=== PATIENT | female | born 1975 | race Hispanic/Latino ===

== ENCOUNTER 2019-03-05 13:23 | Emergency (ER) | payer SELFPAY ==
[2019-03-05] MEDS ORDERED: predniSONE 20 MG TAB ONE (14:31)
[2019-03-05] MEDS ORDERED: Ibuprofen 800 MG TAB ONE (14:32)
--- NOTE | 2019-03-05 14:41 | RAD ---
EXAM: 3 views of the lumbosacral spine HISTORY: Low back pain COMPARISON: None FINDINGS: 3 views of the lumbosacral spine shows normal height and alignment of the vertebral bodies and intervertebral discs without fracture or subluxation. No significant degenerative changes are seen. The sacroiliac joints are unremarkable. IMPRESSION: No significant lumbar spine abnormality.
--- NOTE | 2019-03-05 14:41 | RAD ---
EXAM: AP view pelvis 2 views left hip PROVIDED CLINICAL HISTORY: Back pain for 4 days. Left hip pain. COMPARISON: None FINDINGS: No fracture or dislocation is seen involving the hips bilaterally. No other osseous abnormality. IMPRESSION: No acute osseous abnormality.
== END 2019-03-05 15:30 | disposition home or self-care (01) ==
LOC: ERS 13:23
DX: M54.42 Lumbago with sciatica, left side (principal)
CPT/HCPCS: 72100; 72170; J7512

== ENCOUNTER 2019-11-22 11:26 | Emergency (ER) | payer MEDICAID, SELFPAY ==
[2019-11-22 12:00] LABS: #Basophils 0.1 thou/uL (0.0-0.2); #Eosinphils 0.2 thou/uL (0.0-0.7); #Lymphocytes 2.3 thou/uL (1.20-3.40); #Monocytes 0.5 thou/uL (0.11-0.59); #Neutrophils 5.1 thou/uL (1.40-6.50); %Basophils 0.7 % (0.0-1.0); %Eosinophils 2.7 % (0.0-10.0); %Monocytes 5.8 % (0.0-10.0); %Neutrophils 62.8 % (42.0-75.0); Hemoglobin 13.8 g/dL (12.0-16.0); Mean Corpuscular HGB CONC 33.8 g/dL (32.0-36.0); Mean Corpuscular Hemoglobin 28.4 pg (27.0-31.0); Mean Corpuscular Volume 84.1 fL (78.0-98.0); Mean Platelet Volume 8.9 fL (7.4-10.4); Platelet Count 312 thou/uL (130-400); RBC Distribution Width 12.7 % (11.5-14.5); Red Blood Cell (RBC) Count 4.86 mill/uL (4.20-5.40)
[2019-11-22 12:09] LABS: ALT (SGPT) 12 U/L (8-55); AST (SGOT) 12 U/L (5-34); Albumin 3.8 g/dL (3.5-5.0); Alkaline Phosphatase 94 U/L (40-110); Anion Gap 13 mmol/L (10-20); BUN (Urea Nitrogen) 7 mg/dL (7.0-18.7); Bilirubin, Total 0.3 mg/dL (0.2-1.2); Calc. Creatinine Clearance 0 mL/min (70-130); Calcium 8.7 mg/dL (7.8-10.44); Carbon Dioxide 23 mmol/L (22-29); Chloride 103 mmol/L (98-107); Estimated GFR-MDRD 83; Globulin 3.1 g/dL (2.4-3.5); Glucose 275 mg/dL (70-105); Potassium 4.1 mmol/L (3.5-5.1); Protein, Total 6.9 g/dL (6.0-8.3); Sodium 135 mmol/L (136-145)
[2019-11-22 12:52] LABS: BHCG - Serum POSITIVE (NEGATIVE); Pregs Control Background? CLEAR/WHITE (CLR/WHITE); Pregs Control Bar Appear? YES (CONTROL BAR)
[2019-11-22 12:52] LABS: Bilirubin Negative (Negative); Blood, Urine Negative (Negative); Clarity Turbid (Clear); Glucose, Urine (Dipstick) Greater than 1000 mg/dL (Negative); Ketone, Urine 20 mg/dL (Negative); Leukocyte 500 Leu/uL (Negative); Nitrite Negative (Negative); Protein, Urine (Dipstick) Negative (Neg-Trace); Specific Gravity, Urine 1.042 (1.002-1.036); Urobilinogen Normal mg/dL (Less than 2); pH, Urine 5.5 (5.0-9.0)
[2019-11-22 13:02] LABS: Bacteria/HPF 1+ HPF (None Seen)
[2019-11-22] MEDS ORDERED: Nitrofurantoin Macrocrystal 50 MG CAP PO SCH (14:00)
--- NOTE | 2019-11-22 14:11 | ULT ---
EXAM: Pelvic ultrasound HISTORY: Left lower quadrant discomfort for 3 to 4 days COMPARISON: None TECHNIQUE: Multiple grayscale and color Doppler images were obtained in a transabdominal and transvag inal pelvic ultrasound. Spectral analysis of the Doppler waveforms of the ovaries were performed. FINDINGS: UTERUS: There is an intrauterine gestational sac. This contains a possible yolk sac and pole. [place]-rump length: 3.6 mm which estimates gestational age at 6 weeks 0 days. A heart rate is detected at 116 bpm. No evidence of subchorionic hemorrhage. No free fluid is seen in the pelvis. RIGHT OVARY: Normal flow without focal mass. LEFT OVARY: Normal flow without focal mass. IMPRESSION: Single live intrauterine with estimated age of 6 weeks 0 days.
== END 2019-11-22 14:58 | disposition home or self-care (01) ==
LOC: ERS 11:26
DX: O23.41 Unspecified infection of urinary tract in pregnancy, first trimester (principal); Z3A.01 Less than 8 weeks gestation of pregnancy
CPT/HCPCS: 36415; 76856; 80053; 81003; 81015; 84702; 84703; 85025; 87077; 87086; 94760

== ENCOUNTER 2019-12-18 05:32 | Emergency (ER) | payer MEDICAID, OTHER ==
[2019-12-18 06:05] LABS: #Basophils 0.1 thou/uL (0.0-0.2); #Eosinphils 0.2 thou/uL (0.0-0.7); #Lymphocytes 2.3 thou/uL (1.20-3.40); #Monocytes 0.6 thou/uL (0.11-0.59); #Neutrophils 5.2 thou/uL (1.40-6.50); %Basophils 0.7 % (0.0-1.0); %Eosinophils 2.5 % (0.0-10.0); %Lymphocytes 27.5 % (21.0-51.0); %Monocytes 7.5 % (0.0-10.0); %Neutrophils 61.8 % (42.0-75.0); Mean Corpuscular HGB CONC 32.4 g/dL (32.0-36.0); Mean Corpuscular Hemoglobin 27.8 pg (27.0-31.0); Mean Corpuscular Volume 85.7 fL (78.0-98.0); Mean Platelet Volume 8.4 fL (7.4-10.4); Platelet Count 294 thou/uL (130-400); Red Blood Cell (RBC) Count 4.68 mill/uL (4.20-5.40); White Blood Cell (WBC) Count 8.5 thou/uL (4.8-10.8)
[2019-12-18 06:49] LABS: Bilirubin Negative (Negative); Blood, Urine 3+ (Negative); Clarity Turbid (Clear); Glucose, Urine (Dipstick) Greater than 1000 mg/dL (Negative); Ketone, Urine 20 mg/dL (Negative); Leukocyte 250 Leu/uL (Negative); Nitrite Negative (Negative); Protein, Urine (Dipstick) 30 mg/dL (Neg-Trace); Squamous Epithelial 21-50 HPF (0-3); Urobilinogen Normal mg/dL (Less than 2); pH, Urine 6.5 (5.0-9.0)
[2019-12-18 06:57] LABS: Bacteria/HPF 2+ HPF (None Seen)
== END 2019-12-18 07:04 | disposition short-term general hospital (02) ==
LOC: ERS 05:32
DX: O09.521 Supervision of elderly multigravida, first trimester (principal); O20.9 Hemorrhage in early pregnancy, unspecified; Z3A.10 10 weeks gestation of pregnancy
CPT/HCPCS: 36415; 81003; 81015; 84702; 85025; 86900; 86901

== ENCOUNTER 2020-04-20 21:30 | Emergency (ER) | payer OTHER ==
[2020-04-20] MEDS ORDERED: Dexamethasone 4 mg/ml Vial ONE (22:49)
[2020-04-20] MEDS ORDERED: Acetaminophen 500 MG TAB ONE (22:49)
[2020-04-20] MEDS ORDERED: diphenhydrAMINE 25 MG CAP ONE (22:49)
[2020-04-20 23:10] LABS: #Eosinphils 0.2 thou/uL (0.0-0.7); #Lymphocytes 1.9 thou/uL (1.20-3.40); #Monocytes 0.5 thou/uL (0.11-0.59); #Neutrophils 3.8 thou/uL (1.40-6.50); %Basophils 0.3 % (0.0-1.0); %Eosinophils 3.6 % (0.0-10.0); %Lymphocytes 29.5 % (21.0-51.0); %Monocytes 7.7 % (0.0-10.0); %Neutrophils 58.9 % (42.0-75.0); Hemoglobin 11.5 g/dL (12.0-16.0); Mean Corpuscular HGB CONC 34.3 g/dL (32.0-36.0); Mean Corpuscular Hemoglobin 28.8 pg (27.0-31.0); Mean Platelet Volume 8.6 fL (7.4-10.4); Platelet Count 285 thou/uL (130-400); RBC Distribution Width 12.5 % (11.5-14.5); White Blood Cell (WBC) Count 6.4 thou/uL (4.8-10.8)
[2020-04-20 23:27] LABS: ALT (SGPT) 9 U/L (8-55); AST (SGOT) 14 U/L (5-34); Albumin 3.1 g/dL (3.5-5.0); Alkaline Phosphatase 108 U/L (40-110); Anion Gap 16 mmol/L (10-20); BUN (Urea Nitrogen) 8 mg/dL (7.0-18.7); Bilirubin, Total Less than 0.2 mg/dL (0.2-1.2); Calc. Creatinine Clearance 0 mL/min (70-130); Calcium 9.2 mg/dL (7.8-10.44); Carbon Dioxide 20 mmol/L (22-29); Chloride 101 mmol/L (98-107); Estimated GFR-MDRD Greater than 90; Globulin 3.6 g/dL (2.4-3.5); Glucose 282 mg/dL (70-105); Potassium 3.4 mmol/L (3.5-5.1); Protein, Total 6.7 g/dL (6.0-8.3); Sodium 134 mmol/L (136-145)
== END 2020-04-20 23:55 | disposition home or self-care (01) ==
LOC: ERS 21:30
DX: O99.713 Diseases of the skin and subcutaneous tissue complicating pregnancy, third trimester (principal); L50.9 Urticaria, unspecified; O09.523 Supervision of elderly multigravida, third trimester; O24.415 Gestational diabetes mellitus in pregnancy, controlled by oral hypoglycemic drugs; Z3A.28 28 weeks gestation of pregnancy
CPT/HCPCS: 36415; 80053; 85025; 99284; J1100; Q0163

== ENCOUNTER 2020-04-24 17:10 | Emergency (ER) | payer OTHER ==
[2020-04-24 23:03] LABS: SARS-CoV-2 MS2 Positive; SARS-CoV-2 N Gene Negative; SARS-CoV-2 S Gene Negative; SARS-CoV-2 by NAA Not Detected (NotDetected); SARS-CoV-2 orf1ab Negative
== END 2020-04-24 17:35 | disposition home or self-care (01) ==
LOC: ERS 17:10
DX: O99.891 Other specified diseases and conditions complicating pregnancy (principal); R09.81 Nasal congestion; R50.9 Fever, unspecified; R53.83 Other fatigue; R06.00 Dyspnea, unspecified; Z20.828 Contact with and (suspected) exposure to other viral communicable diseases; O09.523 Supervision of elderly multigravida, third trimester; Z3A.28 28 weeks gestation of pregnancy
CPT/HCPCS: 87635; 99283; U0003

== ENCOUNTER 2020-10-02 18:49 | Emergency (ER) | payer OTHER | END 2020-10-02 19:49 | disposition home or self-care (01) | LOC: ERS 18:49 | DX: R20.2 Paresthesia of skin (principal); G62.9 Polyneuropathy, unspecified | CPT/HCPCS: 99283 ==

== ENCOUNTER 2020-10-18 12:18 | Emergency (ER) | payer OTHER ==
[2020-10-18] MEDS ORDERED: Ketorolac Tromethamine 30 MG/ML VIAL ONE (13:00)
== END 2020-10-18 15:20 | disposition home or self-care (01) ==
LOC: ERS 12:18
DX: M79.10 Myalgia, unspecified site (principal); Z79.899 Other long term (current) drug therapy
CPT/HCPCS: 36415; 71045; 85652; 86140; 96372; J1885

== ENCOUNTER 2021-03-28 15:31 | Outpatient (CLI) | payer OTHER | END 2021-03-28 15:32 | disposition home or self-care (01) | LOC: BICMRI 15:31 | PROVIDERS: ATTEND Student in an Organized Health Care Education/Training Program | DX: S83.8X2D Sprain of other specified parts of left knee, subsequent encounter (principal) ==

== ENCOUNTER 2021-12-22 15:13 | Outpatient (CLI) | payer OTHER | END 2021-12-22 15:14 | disposition home or self-care (01) | LOC: BICMAMMO 15:13 | PROVIDERS: ATTEND Nurse Practitioner Family | DX: Z12.31 Encounter for screening mammogram for malignant neoplasm of breast (principal) | CPT/HCPCS: 77063; 77067 ==

== ENCOUNTER 2022-07-19 16:35 | Outpatient (CLI) | payer OTHER | END 2022-07-19 16:36 | disposition home or self-care (01) | LOC: RAD 16:35 | PROVIDERS: ATTEND Nurse Practitioner Family | DX: M54.31 Sciatica, right side (principal); M47.816 Spondylosis without myelopathy or radiculopathy, lumbar region | CPT/HCPCS: 72100; 72220 ==

== ENCOUNTER 2022-10-09 17:49 | Emergency (ER) | payer OTHER ==
[2022-10-09] MEDS ORDERED: Ketorolac Tromethamine 30 MG/ML VIAL ONE (20:52)
== END 2022-10-09 22:05 | disposition home or self-care (01) ==
LOC: ERS 17:49
DX: L03.116 Cellulitis of left lower limb (principal); M25.552 Pain in left hip; M25.562 Pain in left knee; Z79.4 Long term (current) use of insulin; Z79.84 Long term (current) use of oral hypoglycemic drugs
CPT/HCPCS: 96372; J1885

== ENCOUNTER 2023-01-04 21:14 | Emergency (ER) | payer OTHER | END 2023-01-04 22:48 | disposition home or self-care (01) | LOC: ERS 21:14 | DX: M25.521 Pain in right elbow (principal); E11.9 Type 2 diabetes mellitus without complications; Z79.4 Long term (current) use of insulin; Z79.84 Long term (current) use of oral hypoglycemic drugs | CPT/HCPCS: 99283 ==

== ENCOUNTER 2023-04-07 23:01 | Emergency (ER) | payer BC, OTHER ==
[2023-04-08] MEDS ORDERED: Ibuprofen 200 MG TAB ONE (01:07)
[2023-04-08] MEDS ORDERED: Ondansetron ODT 4 MG TAB ONE (01:07)
[2023-04-08 01:47] LABS: SARS-CoV-2 NAA Rapid Test Not Detected (NotDetected)
== END 2023-04-08 02:05 | disposition home or self-care (01) ==
LOC: ERS 23:01
DX: B34.9 Viral infection, unspecified (principal); E11.9 Type 2 diabetes mellitus without complications; Z79.84 Long term (current) use of oral hypoglycemic drugs; Z20.822 Contact with and (suspected) exposure to COVID-19; Z79.4 Long term (current) use of insulin
CPT/HCPCS: 87081; 87430; 99283; Q0162

== ENCOUNTER 2023-07-17 14:10 | Outpatient (CLI) | payer OTHER | END 2023-07-17 14:11 | disposition home or self-care (01) | LOC: BICMAMMO 14:10 | PROVIDERS: ATTEND Nurse Practitioner Family | DX: N63.20 Unspecified lump in the left breast, unspecified quadrant (principal); N64.89 Other specified disorders of breast | CPT/HCPCS: 77066; G0279 ==

== ENCOUNTER 2023-12-13 14:22 | Day surgery (SDC) | payer OTHER ==
[2023-12-13] MEDS ORDERED: Ketorolac Tromethamine 30 MG (1 mL) VIAL ONE ×2 (14:32→16:45)
[2023-12-13] MEDS ORDERED: Acetaminophen 500 MG TAB ONE (14:32)
[2023-12-13] MEDS ORDERED: fentaNYL PF 100 MCG/2 ML SYRINGE ONE (14:33)
[2023-12-13] MEDS ORDERED: PROPOFOL 20 ML ONE (14:33)
[2023-12-13] MEDS ORDERED: Lidocaine 2% PF 5 ML VIAL ONE (14:53)
[2023-12-13] MEDS ORDERED: Bupivacaine 0.25% HCL 30 ML VIAL ONE (14:53)
[2023-12-13] MEDS ORDERED: EPINEPHrine 1 MG/ML VIAL ONE (14:53)
[2023-12-13] MEDS ORDERED: Sodium Chloride 0.9% 100 ML ONE (16:06)
[2023-12-13] MEDS ORDERED: CEFAZOLIN 2 GM VIAL ONE (16:06)
[2023-12-13] MEDS ORDERED: Dexamethasone 4 mg/ml Vial ONE (16:42)
[2023-12-13] MEDS ORDERED: Ondansetron PF 4 MG/2 ML Vial ONE (16:45)
[2023-12-13] MEDS ORDERED: fentaNYL 50 mcg/mL 1 mL Vial ONE (17:20)
== END 2023-12-13 18:55 | disposition home or self-care (01) ==
LOC: SDC 14:22
PROVIDERS: ATTEND Specialist
PROC: 0H9U00Z Drainage of Left Breast with Drainage Device, Open Approach (ICD-10-PCS; principal; 2023-12-13)
PROC: 0HB5XZX Excision of Chest Skin, External Approach, Diagnostic (ICD-10-PCS; principal; 2023-12-13)
DX: N61.22 Granulomatous mastitis, left breast (principal); N61.1 Abscess of the breast and nipple; E11.9 Type 2 diabetes mellitus without complications; E78.00 Pure hypercholesterolemia, unspecified; Z79.82 Long term (current) use of aspirin; Z79.4 Long term (current) use of insulin; Z79.899 Other long term (current) drug therapy
CPT/HCPCS: 36416; 87070; 87205; 88305; 88312; J0171; J0665; J1100; J1885; J2001; J2405; J2704; J3010; J3490